=== PATIENT | female | born 1985 | race Two or more races ===

== ENCOUNTER 2017-10-15 18:51 | Emergency (ER) | payer OTHER ==
[~2017-10-15] VITALS: Ht 177.8 cm; Wt 96.2 kg
[~2017-10-15 18:51] MED LIST: AMOXICILLIN500 M1 PO; PANADOL EXTRA500 MG PO; ROBITUSSIN DM118 M1
== END 2017-10-15 23:15 | disposition home or self-care (01) ==
LOC: ER 18:51
DX: R10.2 Pelvic and perineal pain (principal); N83.291 Other ovarian cyst, right side

== ENCOUNTER → 2018-12-23 | Emergency (ER) | payer OTHER ==
[~2018-12-23] VITALS: Ht 177.8 cm; Wt 99.3 kg
[~2018-12-23] MED LIST changes: +KETO10TA2 PO; +NORFLEX100MG PO
== END | disposition home or self-care (01) ==
LOC: ER 19:33
DX: S13.4XXA Sprain of ligaments of cervical spine, initial encounter (principal); M54.2 Cervicalgia; V49.9XXA Car occupant (driver) (passenger) injured in unspecified traffic accident, initial encounter; Y93.89 Activity, other specified; Y92.488 Other paved roadways as the place of occurrence of the external cause; Y99.8 Other external cause status